=== PATIENT | female | born 1960 | race African-American/Black ===

== ENCOUNTER 2022-01-08 13:50 | Emergency (ER) | payer MEDICAID ==
[~2022-01-08] VITALS: Ht 157.5 cm; Wt 70.5 kg
[2022-01-08 14:23] VITALS: BP 148/99
[2022-01-08] MEDS ORDERED: CEPH500T PO (15:58)
== END 2022-01-08 16:12 | disposition home or self-care (01) ==
LOC: ER 13:50
DX: L84 Corns and callosities (principal); I10 Essential (primary) hypertension; E11.9 Type 2 diabetes mellitus without complications; E78.5 Hyperlipidemia, unspecified; E03.9 Hypothyroidism, unspecified; F17.210 Nicotine dependence, cigarettes, uncomplicated; Z90.710 Acquired absence of both cervix and uterus; Z79.899 Other long term (current) drug therapy
CPT/HCPCS: 73630

== ENCOUNTER 2022-03-18 08:38 | Emergency (ER) | payer MEDICAID ==
[~2022-03-18] VITALS: Ht 157.5 cm; Wt 70.5 kg
[~2022-03-18 08:38] MED LIST: CEPH500T PO
[2022-03-18] MEDS ORDERED: CEPH-510 PO (11:00)
[2022-03-18] MEDS ORDERED: HYDR50CA PO (11:00)
[2022-03-18] MEDS ORDERED: diphenhdrAMINE HCL 50 MG/1 ML VL IM ONE (11:00)
[2022-03-18] MEDS ORDERED: PER60TP TOP (11:00)
[2022-03-18 11:10] VITALS: BP 162/94
== END 2022-03-18 11:13 | disposition home or self-care (01) ==
LOC: ER 08:38
DX: B86 Scabies (principal); I10 Essential (primary) hypertension; E11.9 Type 2 diabetes mellitus without complications; E78.5 Hyperlipidemia, unspecified; E03.9 Hypothyroidism, unspecified; F17.210 Nicotine dependence, cigarettes, uncomplicated; Z90.710 Acquired absence of both cervix and uterus; Z79.899 Other long term (current) drug therapy
CPT/HCPCS: 96372; 99283; J1200

== ENCOUNTER 2022-03-29 08:49 | Emergency (ER) | payer MEDICAID ==
[~2022-03-29] VITALS: Ht 157.5 cm; Wt 100.0 kg
[~2022-03-29 08:49] MED LIST changes: +CEPH-510 PO; +HYDR50CA PO; +PER60TP TOP
[2022-03-29 11:17] VITALS: BP 113/76
== END 2022-03-29 12:54 | disposition left against medical advice (07) ==
LOC: ER 08:49
DX: B86 Scabies (principal); I10 Essential (primary) hypertension; E11.9 Type 2 diabetes mellitus without complications; E03.9 Hypothyroidism, unspecified; E78.5 Hyperlipidemia, unspecified; F17.210 Nicotine dependence, cigarettes, uncomplicated; Z90.710 Acquired absence of both cervix and uterus; Z79.899 Other long term (current) drug therapy

== ENCOUNTER 2022-09-23 02:55 | Emergency (ER) | payer MEDICAID ==
[~2022-09-23] VITALS: Ht 160 cm; Wt 67.8 kg
[2022-09-23 03:40] LABS: Basophils # (auto) 0.1 10 ^3/uL (0-0.2); Basophils % (auto) 0.7 % (0.0-2.0); Eosinophils # (auto) 0 10 ^3/uL (0-0.8); Eosinophils % (auto) 0.2 % (0.0-7.0); Hemoglobin 15.1 g/dL (12.2-16.2); Lymphocytes # (auto) 2.3 10 ^3/uL (0.4-5.4); Lymphocytes % (auto) 21.2 % (10.0-50.0); Mean Corpuscular Hemoglobin 29.5 pg (28.0-32.0); Mean Corpuscular Hgb Conc. 34.3 g/dL (32.0-36.0); Mean Corpuscular Volume 85.8 fL (80.0-100.0); Monocytes # (auto) 1.4 10 ^3/uL (0-1.3); Monocytes % (auto) 12.8 % (0.0-12.0); Neutrophils % (auto) 65.1 % (37.0-80.0); Nucleated Red Blood Cells % 0.2 %; Red Blood Cells 5.13 10^6/uL (4.0-5.20); Red Cell Distribution Width 14.9 % (11.8-14.3); White Blood Cell 10.7 10^3/uL (4.4-10.8)
[2022-09-23 03:45] LABS: Albumin 3.7 g/dL (3.4-5.0); BUN/Creatinine Ratio 13.4; Calcium 9.6 mg/dL (8.5-10.1); Magnesium 2.4 mg/dL (1.6-2.6); Potassium 3.7 mmol/L (3.5-5.1)
[2022-09-23 03:47] LABS: Bilirubin, Total 0.5 mg/dL (0.2-1.0); Total Protein 8.6 g/dL (6.4-8.2)
[2022-09-23] MEDS ORDERED: LISINOPRIL 10 MG TAB PO ONE (06:15)
[2022-09-23] MEDS ORDERED: METOPROLOL SUCCINATE XL 50 MG TAB PO ONE (06:15)
[2022-09-23 09:52] VITALS: BP 155/88
== END 2022-09-23 09:56 | disposition home or self-care (01) ==
LOC: ER 02:55
DX: R07.89 Other chest pain (principal); I10 Essential (primary) hypertension; F17.210 Nicotine dependence, cigarettes, uncomplicated; E11.9 Type 2 diabetes mellitus without complications; E78.5 Hyperlipidemia, unspecified; Z90.710 Acquired absence of both cervix and uterus
CPT/HCPCS: 36415; 71045; 80053; 83735; 83880; 84484; 85025; 93005

== ENCOUNTER 2023-01-15 18:31 | Emergency (ER) | payer MEDICAID, OTHER ==
[~2023-01-15] VITALS: Ht 157.5 cm; Wt 60.0 kg
[2023-01-15 18:40] VITALS: BP 156/104
[2023-01-15] MEDS ORDERED: IBUP-1455 PO (21:03)
[2023-01-15] MEDS ORDERED: KETOROLAC TROMETH 30 MG/ML 1ML VIAL IM ONE (21:15)
== END 2023-01-15 21:15 | disposition home or self-care (01) ==
LOC: ER 18:31
DX: J45.909 Unspecified asthma, uncomplicated (principal); I10 Essential (primary) hypertension; F17.210 Nicotine dependence, cigarettes, uncomplicated; Z90.710 Acquired absence of both cervix and uterus
CPT/HCPCS: 96372; 99283; J1885

== ENCOUNTER 2023-10-21 19:52 | Inpatient (IN) | payer MEDICAID ==
[~2023-10-21] VITALS: Ht 160 cm; Wt 76.3 kg
[~2023-10-21 19:52] MED LIST changes: +IBUP-1455 PO
[2023-10-21 20:20] VITALS: PULSE 129; RESP 14; O2SAT 94
[2023-10-21] MEDS: ONDANSETRON HCL 4 MG/2 ML VIAL IV ONE (22:10)
[2023-10-21] MEDS: HYDROmorphone HCL 2 MG/ML VL/or syr IV ONE (22:10)
[2023-10-22 02:30] LABS: Basophils # (auto) 0.1 10 ^3/uL (0-0.2); Basophils % (auto) 1.1 % (0.0-2.0); Eosinophils # (auto) 0.2 10 ^3/uL (0-0.8); Eosinophils % (auto) 1.6 % (0.0-7.0); Hematocrit 38.6 % (36.0-46.0); Hemoglobin 12.5 g/dL (12.2-16.2); Lymphocytes % (auto) 36.9 % (10.0-50.0); Mean Corpuscular Hemoglobin 27.7 pg (28.0-32.0); Mean Corpuscular Hgb Conc. 32.4 g/dL (32.0-36.0); Mean Corpuscular Volume 85.4 fL (80.0-100.0); Monocytes # (auto) 1.2 10 ^3/uL (0-1.3); Monocytes % (auto) 11.2 % (0.0-12.0); Neutrophils # (auto) 5.3 10 ^3/uL (1.6-8.6); Neutrophils % (auto) 49.2 % (37.0-80.0); Red Blood Cells 4.52 10^6/uL (4.0-5.20); Red Cell Distribution Width 14.3 % (11.8-14.3); White Blood Cell 10.7 10^3/uL (4.4-10.8)
[2023-10-22 02:36] LABS: Alanine Aminotransferase 10 U/L (7-40); Albumin 3.8 g/dL (3.2-4.8); Alkaline Phosphatase 76 U/L (46-116); Anion Gap 2 (5-15); Aspartate Aminotransferase 15 U/L (13-40); BUN/Creatinine Ratio 13.9 (10.0-20.0); Bilirubin, Total 0.2 mg/dL (0.2-1.0); Blood Urea Nitrogen 10 mg/dL (9-23); Calcium 9.4 mg/dL (8.7-10.4); Carbon Dioxide 28 mmol/L (20-30); Chloride 105 mmol/L (98-107); Glucose 126 mg/dL (74-106); Potassium 4.6 mmol/L (3.5-5.1); Sodium 135 mmol/L (136-145); Total Protein 6.4 g/dL (5.7-8.2)
[2023-10-22] MEDS ORDERED: ONDANSETRON HCL 4 MG/2 ML VIAL IV PRN (03:30)
[2023-10-22] MEDS ORDERED: DEXTROSE (50%) 50ML SYRG IV PRN (03:30)
[2023-10-22] MEDS ORDERED: DOCUSATE SOD 100 MG CAP PO PRN (03:30)
[2023-10-22] MEDS ORDERED: NITROGLYCERIN 0.4 MG SL TAB SL PRN (03:30)
[2023-10-22] MEDS ORDERED: MORPHINE SULFATE INJ 2 MG/ml SYRG IV PRN (03:30)
[2023-10-22 04:30] LABS: Basophils # (auto) 0.1 10 ^3/uL (0-0.2); Basophils % (auto) 1.1 % (0.0-2.0); Eosinophils # (auto) 0.2 10 ^3/uL (0-0.8); Eosinophils % (auto) 2.2 % (0.0-7.0); Hematocrit 39.2 % (36.0-46.0); Hemoglobin 12.7 g/dL (12.2-16.2); Lymphocytes % (auto) 38.3 % (10.0-50.0); Mean Corpuscular Hemoglobin 28.1 pg (28.0-32.0); Mean Corpuscular Hgb Conc. 32.4 g/dL (32.0-36.0); Mean Corpuscular Volume 86.6 fL (80.0-100.0); Monocytes # (auto) 1.3 10 ^3/uL (0-1.3); Monocytes % (auto) 12.2 % (0.0-12.0); Neutrophils # (auto) 4.8 10 ^3/uL (1.6-8.6); Neutrophils % (auto) 46.2 % (37.0-80.0); Nucleated Red Blood Cells % 0.1 %; Red Blood Cells 4.52 10^6/uL (4.0-5.20); Red Cell Distribution Width 14.6 % (11.8-14.3); White Blood Cell 10.4 10^3/uL (4.4-10.8)
[2023-10-22 04:40] LABS: Chloride 105 mmol/L (98-107); Potassium 4.2 mmol/L (3.5-5.1); Sodium 135 mmol/L (136-145)
[2023-10-22 04:41] LABS: Anion Gap 3 (5-15); Calcium 9.2 mg/dL (8.7-10.4); Carbon Dioxide 27 mmol/L (20-30)
[2023-10-22 04:46] LABS: BUN/Creatinine Ratio 10.1 (10.0-20.0); Blood Urea Nitrogen 7 mg/dL (9-23); Glucose 122 mg/dL (74-106)
[2023-10-22] MEDS: MORPHINE SULFATE INJ 2 MG/ml SYRG IV PRN (06:58)
[2023-10-22] MEDS: InsuLIN REG 1unit/0.01ml Soln (100units/ml) SC SCH (07:00)
[2023-10-22] MEDS: ACCU-CHEK COMFORT CURVE STRIP VI SCH (07:13)
[2023-10-22 08:00] VITALS: BP 99/69; PULSE 124; RESP 18; TEMP 97.4; O2SAT 96
[2023-10-22 08:15] VITALS: PULSE 124; RESP 18; O2SAT 96
[2023-10-22] MEDS: DOCUSATE SOD 100 MG CAP PO SCH (08:24)
[2023-10-22] MEDS: ENOXAPARIN SOD 40 MG/0.4 ML SYRINGE SC SCH (09:43)
[2023-10-22] MEDS: HYDROcodone-ACET 5/325MG TAB PO PRN (09:47)
[2023-10-22 12:00] VITALS: BP 152/81; PULSE 92; RESP 18; TEMP 97.8; O2SAT 93
[2023-10-22 16:00] VITALS: BP 154/79; PULSE 109; RESP 18; TEMP 97.6; O2SAT 93
[2023-10-22] MEDS: methylPREDNISolone SOD SUCC 125 MG/2 ML VL IV SCH (16:48)
[2023-10-22] MEDS: PANTOPRAZOLE 40 MG/10 ML VIAL INJ IV SCH (16:48)
[2023-10-22 20:00] VITALS: RESP 18; O2SAT 96
[2023-10-22 21:00] VITALS: BP 147/104; PULSE 118; RESP 22; TEMP 98.4; O2SAT 95
[2023-10-23] VITALS (7 sets, daily range): BP systolic 112–150; BP diastolic 69–88; PULSE 89–133; RESP 14–20; TEMP 97.3–98.2; O2SAT 91–98
[2023-10-23 06:59] LABS: Basophils # (auto) 0 10 ^3/uL (0-0.2); Basophils % (auto) 0.3 % (0.0-2.0); Eosinophils # (auto) 0 10 ^3/uL (0-0.8); Hematocrit 40.4 % (36.0-46.0); Hemoglobin 13.6 g/dL (12.2-16.2); Lymphocytes # (auto) 1.5 10 ^3/uL (0.4-5.4); Lymphocytes % (auto) 20.8 % (10.0-50.0); Mean Corpuscular Hemoglobin 28.6 pg (28.0-32.0); Mean Corpuscular Hgb Conc. 33.6 g/dL (32.0-36.0); Mean Corpuscular Volume 85.1 fL (80.0-100.0); Monocytes # (auto) 0.4 10 ^3/uL (0-1.3); Monocytes % (auto) 5.7 % (0.0-12.0); Neutrophils # (auto) 5.3 10 ^3/uL (1.6-8.6); Neutrophils % (auto) 73.2 % (37.0-80.0); Red Blood Cells 4.75 10^6/uL (4.0-5.20); White Blood Cell 7.2 10^3/uL (4.4-10.8)
[2023-10-23 07:11] LABS: Anion Gap 9 (5-15); Calcium 9.7 mg/dL (8.5-10.1); Carbon Dioxide 25 mmol/L (20-30); Chloride 104 mmol/L (98-107); Potassium 3.5 mmol/L (3.5-5.1); Sodium 138 mmol/L (136-145)
[2023-10-23 07:16] LABS: Glucose 127 mg/dL (74-106)
[2023-10-23 07:17] LABS: BUN/Creatinine Ratio 12.5 (10.0-20.0); Blood Urea Nitrogen 8 mg/dL (9-23)
[2023-10-23] MEDS: ACETAMINOPHEN 325 MG TAB PO PRN (23:14)
[2023-10-24] VITALS (8 sets, daily range): BP systolic 110–156; BP diastolic 63–87; PULSE 81–113; RESP 14–18; TEMP 97.8–98.4; O2SAT 92–99
[2023-10-24 05:40] LABS: Calcium 9.8 mg/dL (8.7-10.4); Chloride 108 mmol/L (98-107); Potassium 3.7 mmol/L (3.5-5.1); Sodium 138 mmol/L (136-145)
[2023-10-24 05:41] LABS: Anion Gap 2 (5-15); Carbon Dioxide 28 mmol/L (20-30)
[2023-10-24 05:46] LABS: BUN/Creatinine Ratio 18.4 (10.0-20.0); Blood Urea Nitrogen 14 mg/dL (9-23); Glucose 133 mg/dL (74-106)
[2023-10-24 05:48] LABS: Basophils # (auto) 0 10 ^3/uL (0-0.2); Basophils % (auto) 0.1 % (0.0-2.0); Eosinophils # (auto) 0 10 ^3/uL (0-0.8); Hematocrit 40.9 % (36.0-46.0); Hemoglobin 13.6 g/dL (12.2-16.2); Lymphocytes # (auto) 1.8 10 ^3/uL (0.4-5.4); Lymphocytes % (auto) 17.2 % (10.0-50.0); Mean Corpuscular Hemoglobin 28.3 pg (28.0-32.0); Mean Corpuscular Hgb Conc. 33.4 g/dL (32.0-36.0); Mean Corpuscular Volume 84.8 fL (80.0-100.0); Monocytes # (auto) 0.8 10 ^3/uL (0-1.3); Monocytes % (auto) 7.8 % (0.0-12.0); Neutrophils # (auto) 7.9 10 ^3/uL (1.6-8.6); Neutrophils % (auto) 74.9 % (37.0-80.0); Nucleated Red Blood Cells % 0.1 %; Red Blood Cells 4.82 10^6/uL (4.0-5.20); Red Cell Distribution Width 14.6 % (11.8-14.3); White Blood Cell 10.6 10^3/uL (4.4-10.8)
[2023-10-25] VITALS (7 sets, daily range): BP systolic 124–149; BP diastolic 70–101; PULSE 81–109; RESP 16–18; TEMP 98.1–98.4; O2SAT 92–97
[2023-10-25 05:46] LABS: Basophils # (auto) 0.1 10 ^3/uL (0-0.2); Basophils % (auto) 1.3 % (0.0-2.0); Chloride 109 mmol/L (98-107); Eosinophils # (auto) 0 10 ^3/uL (0-0.8); Hematocrit 41.9 % (36.0-46.0); Hemoglobin 13.7 g/dL (12.2-16.2); Lymphocytes % (auto) 17.3 % (10.0-50.0); Mean Corpuscular Hemoglobin 27.8 pg (28.0-32.0); Mean Corpuscular Hgb Conc. 32.8 g/dL (32.0-36.0); Mean Corpuscular Volume 84.9 fL (80.0-100.0); Monocytes # (auto) 0.9 10 ^3/uL (0-1.3); Neutrophils # (auto) 8.3 10 ^3/uL (1.6-8.6); Neutrophils % (auto) 73.4 % (37.0-80.0); Nucleated Red Blood Cells % 0.1 %; Potassium 3.7 mmol/L (3.5-5.1); Red Blood Cells 4.94 10^6/uL (4.0-5.20); Red Cell Distribution Width 14.4 % (11.8-14.3); Sodium 140 mmol/L (136-145); White Blood Cell 11.3 10^3/uL (4.4-10.8)
[2023-10-25 05:47] LABS: Anion Gap 2 (5-15); Calcium 9.4 mg/dL (8.7-10.4); Carbon Dioxide 29 mmol/L (20-30)
[2023-10-25 05:52] LABS: BUN/Creatinine Ratio 22.7 (10.0-20.0); Blood Urea Nitrogen 17 mg/dL (9-23); Glucose 133 mg/dL (74-106)
[2023-10-25] MEDS ORDERED: AMLO1TAB22 PO (17:12)
[2023-10-25] MEDS ORDERED: METO-159 PO (17:12)
[2023-10-25] MEDS ORDERED: LISI20TA56 PO (17:12)
[2023-10-26] VITALS (7 sets, daily range): BP systolic 136–150; BP diastolic 66–108; PULSE 64–107; RESP 14–18; TEMP 97.2–98.6; O2SAT 96–100
[2023-10-26 06:21] LABS: Anion Gap 5 (5-15); Carbon Dioxide 24 mmol/L (20-30); Chloride 109 mmol/L (98-107); Potassium 3.9 mmol/L (3.5-5.1); Sodium 138 mmol/L (136-145)
[2023-10-26 06:26] LABS: BUN/Creatinine Ratio 18.7 (10.0-20.0); Blood Urea Nitrogen 14 mg/dL (9-23); Glucose 123 mg/dL (74-106)
[2023-10-26 06:33] LABS: Basophils # (auto) 0.1 10 ^3/uL (0-0.2); Basophils % (auto) 0.6 % (0.0-2.0); Eosinophils # (auto) 0 10 ^3/uL (0-0.8); Hematocrit 41.6 % (36.0-46.0); Hemoglobin 13.7 g/dL (12.2-16.2); Lymphocytes # (auto) 2.9 10 ^3/uL (0.4-5.4); Lymphocytes % (auto) 21.3 % (10.0-50.0); Mean Corpuscular Hemoglobin 28.4 pg (28.0-32.0); Mean Corpuscular Hgb Conc. 32.9 g/dL (32.0-36.0); Mean Corpuscular Volume 86.3 fL (80.0-100.0); Monocytes % (auto) 7.1 % (0.0-12.0); Neutrophils # (auto) 9.6 10 ^3/uL (1.6-8.6); Nucleated Red Blood Cells % 0.2 %; Red Blood Cells 4.82 10^6/uL (4.0-5.20); Red Cell Distribution Width 14.4 % (11.8-14.3); White Blood Cell 13.5 10^3/uL (4.4-10.8)
[2023-10-26] MEDS: LISINOPRIL 20 MG TAB PO SCH (09:18)
[2023-10-26] MEDS: METOPROLOL SUCCINATE XL 50 MG TAB PO SCH (09:18)
[2023-10-26] MEDS: amLODIPine BESYLATE 5 MG TAB PO SCH (09:18)
[2023-10-26] MEDS: ceFAZolin 2 GM/D5W50ml 50 ML IV ONE (13:06)
[2023-10-26] MEDS ORDERED: MORPHINE SULF PF 5 MG/10 ML VIAL ONE (14:31)
[2023-10-26] MEDS ORDERED: LIDOCAINE 1% INJ PF 5ML AMP ONE (14:31)
[2023-10-26] MEDS ORDERED: MIDAZOLAM HCL 2MG/2ML 2ml VIAL (1mg/ml) ONE (14:31)
[2023-10-26] MEDS ORDERED: fentaNYL CITRATE 5 ML ONE (14:31)
[2023-10-26] MEDS ORDERED: ONDANSETRON HCL 4 MG/2 ML VIAL ONE (14:31)
[2023-10-26] MEDS ORDERED: [UNRECOGNIZED DRUG - OTHER] ONE (14:31)
[2023-10-26] MEDS ORDERED: ROCURONIUM 10MG/ML 10ML VIAL IV ONE (14:31)
[2023-10-26] MEDS ORDERED: PROPOFOL 10 MG/ML 20 ML IV ONE (14:31)
[2023-10-26] MEDS ORDERED: DexAMETHasone SOD PHOS 10MG/1ML VIAL INJ ONE (14:31)
[2023-10-26] MEDS ORDERED: NEOSTIGMINE 1 MG/ML INJ (10mg/10ML VIAL) ONE (14:31)
[2023-10-26] MEDS ORDERED: fentaNYL CITRATE 100 MCG/2 ML VL ONE ×2 (14:31→17:34)
[2023-10-26] MEDS ORDERED: GLYCOPYRROLATE 0.2 MG/ML 1ML VIAL ONE (14:31)
[2023-10-26] MEDS ORDERED: KETAMINE 50mg/ML 1ml syringe ONE (14:34)
[2023-10-26] MEDS: TRANEXAMIC ACID 20 ML ONE (14:37)
[2023-10-26] MEDS: LIDOCAINE W/ EPINEPHRINE 1% 20ML VIAL ONE (14:37)
[2023-10-26] MEDS: levoFLOXacin 500MG 100 ML IV ONE (16:32)
[2023-10-26] MEDS ORDERED: ONDANSETRON HCL 4 MG/2 ML VIAL IV PRN (18:45)
[2023-10-26] MEDS ORDERED: MORPHINE SULFATE INJ 2 MG/ml SYRG IV PRN (19:30)
[2023-10-26] MEDS ORDERED: HYDROmorphone HCL 2 MG/ML VL/or syr IV PRN ×2 (19:30)
[2023-10-26] MEDS: KETOROLAC TROMETH 30 MG/ML 1ML VIAL IV ONE (19:30)
[2023-10-26] MEDS: METOCLOPRAMIDE HCL 5MG/ml INJ 2ml VIAL IV ONE (19:30)
[2023-10-26] MEDS ORDERED: THROAT LOZENGES(CEPASTAT) MT PRN (19:30)
[2023-10-26] MEDS: DOCUSATE SOD 100 MG CAP PO SCH (21:47)
[2023-10-26] MEDS: CYCLOBENZAPRINE HCL 10 MG TAB PO SCH (21:47)
[2023-10-26] MEDS: ceFAZolin 1GM/50ML 50 ML IV SCH (21:48)
[2023-10-26] MEDS: D5W/SOD CHLO 0.9% 1,000 ML IV SCH (21:50)
[2023-10-26] MEDS: MORPHINE SULFATE INJ 2 MG/ml SYRG IV PRN (23:02)
[2023-10-27] VITALS (9 sets, daily range): BP systolic 115–146; BP diastolic 56–76; PULSE 67–93; RESP 14–19; TEMP 97.5–99.4; O2SAT 92–97
[2023-10-27] MEDS: HYDROcodone-ACET 10/325MG TAB PO PRN (00:39)
[2023-10-27] MEDS: HYDROmorphone HCL 2 MG/ML VL/or syr IV ONE (04:48)
[2023-10-27] MEDS: ACETAMINOPHEN 325 MG TAB PO PRN (10:33)
[2023-10-27] MEDS: MORPHINE SULFATE INJ 2 MG/ml SYRG IV PRN (12:44)
[2023-10-27] MEDS: HYDROcodone-ACET 5/325MG TAB PO PRN (14:23)
[2023-10-28 01:00] VITALS: BP 142/69; PULSE 89; RESP 17; TEMP 100.1; O2SAT 95
[2023-10-28 05:00] VITALS: BP 140/64; PULSE 87; RESP 18; TEMP 98.9; O2SAT 94
[2023-10-28 08:00] VITALS: PULSE 75; PULSE 80; RESP 16
[2023-10-28 10:36] VITALS: BP 148/87; PULSE 89; RESP 19; TEMP 98.1; O2SAT 96
[2023-10-28 12:59] VITALS: BP 119/70; PULSE 95; RESP 18; TEMP 98.9; O2SAT 94
[2023-10-28 17:04] VITALS: BP_SYST 117; BP_SYST 148; BP_DIAS 80; BP_DIAS 87; PULSE 80; PULSE 97; RESP 18; TEMP 37.2; O2SAT 95
== END 2023-10-28 17:59 | disposition home health service (06) | DRG 304 ==
LOC: EDBD 19:52 → ER 19:52 → OVERFLOW 10-22 03:36 → WEST WING 10-22 03:36 → TELE-WESTW 10-26 19:41
PROVIDERS: ADMIT Nurse Practitioner Family; ATTEND Nurse Practitioner Family
PROC: 0SG0071 Fusion of Lumbar Vertebral Joint with Autologous Tissue Substitute, Posterior Approach, Posterior Column, Open Approach (ICD-10-PCS; 2023-10-26)
PROC: 01NB0ZZ Release Lumbar Nerve, Open Approach (ICD-10-PCS; 2023-10-26)
PROC: 4A11X4G Monitoring of Peripheral Nervous Electrical Activity, Intraoperative, External Approach (ICD-10-PCS; 2023-10-26)
PROC: 00NY0ZZ Release Lumbar Spinal Cord, Open Approach (ICD-10-PCS; 2023-10-26)
PROC: 0SG3071 Fusion of Lumbosacral Joint with Autologous Tissue Substitute, Posterior Approach, Posterior Column, Open Approach (ICD-10-PCS; principal; 2023-10-26 15:33)
DX: M48.061 Spinal stenosis, lumbar region without neurogenic claudication (principal); M48.56XA Collapsed vertebra, not elsewhere classified, lumbar region, initial encounter for fracture; E03.9 Hypothyroidism, unspecified; M41.9 Scoliosis, unspecified; I10 Essential (primary) hypertension; E11.9 Type 2 diabetes mellitus without complications; W18.30XA Fall on same level, unspecified, initial encounter; M43.17 Spondylolisthesis, lumbosacral region; X58.XXXA Exposure to other specified factors, initial encounter; Y93.89 Activity, other specified; Y92.89 Other specified places as the place of occurrence of the external cause; Y99.8 Other external cause status; M54.16 Radiculopathy, lumbar region; W19.XXXA Unspecified fall, initial encounter
CPT/HCPCS: 36415; 71250; 72100; 72131; 72148; 74176; 76000; 80048; 80053; 82962; 85025; 86850; 86900; 86901; 93005; 96374; 96375; 97110; 97116; 97163; 97530; C9113; G0378; J1100; J1815; J1956; J2250; J2405; J2704; J7042

== ENCOUNTER 2024-10-06 18:57 | Emergency (ER) | payer MEDICAID ==
[~2024-10-06] VITALS: Ht 157.5 cm; Wt 68.7 kg
[~2024-10-06 18:57] MED LIST changes: +AMLO1TAB22 PO; -CEPH-510 PO; -CEPH500T PO; -IBUP-1455 PO; +LISI20TA56 PO; +METO-159 PO
[2024-10-06 19:25] VITALS: BP 114/82; PULSE 101; RESP 16; TEMP 97.8; O2SAT 95
--- NOTE | 2024-10-06 19:44 | ED.PDOC ---
GI ASSESSMENT HPI Comments 63-year-old female who came to ER for diarrhea. Patient states she has been having episodes of diarrhea even before she had her back surgery last October 2023. After the surgery she has been having fecal incontinence, she is unable to prevent herself from having diarrhea that worsened the past 2 days. Denies any abdominal pain, nausea or vomiting. Chief Complaint: Diarrhea Time Seen by MD: 19:43 Primary Care Provider: TREVA Harrison Notes: Nurses Notes Allergies: Coded Allergies: NO KNOWN ALLERGIES (Unverified , 01/08/22) Home Meds Active Scripts Permethrin (Elimite) 5 % Cre, 1 APPLIC TOP ONCE, #60 GRAMS 1 Refill Prov:MIO ARITA 03/18/22 Hydroxyzine Pamoate (Vistaril) 50 Mg Cap, 50 MG PO BID, #30 CAP Prov:MIO ARITA 03/18/22 Reported Medications Lisinopril (Lisinopril) 20 Mg Tab, 1 TAB PO DAILY, #30 TAB 5 Refills 10/25/23 Metoprolol Tartrate (Metoprolol Tartrate) 100 Mg Tab, 100 MG PO DAILY for 30 Days, MG 10/25/23 Amlodipine Besylate (Amlodipine Besylate) 5 Mg Tab, 10 MG PO DAILY for 30 Days, MG 10/25/23 Information Source: Patient Mode of Arrival: Ambulatory Timing: Months Duration: Intermittent Prehospital treatment: None Quality: None Vomitus: None Stool: Loose, Watery Severity: Moderate Recent: Recent Surgery Associated sign and symptoms: Diarrhea Past Medical History PAST MEDICAL HISTORY: Asthma, HTN, Thyroid Surgical History: Hysterectomy [employer]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 [employer]ARD WORKER History Family History Family History: Reviewed,noncontributory to illness Social History Smoker: Cigarettes, Less Than 1 Pack/Day Alcohol: Denies ETOH Use Drugs: Denies Drug Use Lives In: Home Constitutional: denies: chills, diaphoresis, fatigue, fever, malaise, sweats, weakness, others EENTM: denies: blurred vision, double vision, ear bleeding, ear discharge, ear drainage, ear pain, ear ringing, eye pain, eye redness, hearing loss, mouth pain, mouth swelling, nasal discharge, nose bleeding, nose congestion, nose pain, photophobia, tearing, throat pain, throat swelling, voice changes, others Respiratory: denies: cough, hemoptysis, orthopnea, SOB at rest, shortness of breath, SOB with excertion, stridor, wheezing, others Cardiovascular: denies: chest pain, dizzy spells, diaphoresis, Dyspnea on exertion, edema, irregular heart beat, left arm pain, lightheadedness, palpitations, PND, syncope, others Gastrointestinal: reports: diarrhea; denies: abdomen distended, abdominal pain, blood streaked bowels, constipated, dysphagia, difficulty swallowing, hematemesis, melena, nausea, poor appetite, poor fluid intake, rectal bleeding, rectal pain, vomiting, others Genitourinary: denies: abnormal vagina bleeding, burning, dyspareunia, dysuria, flank pain, frequency, hematuria, incontinence, pain, , vagina discharge, urgency, others Neurological: denies: dizziness, fainting, headache, left sided numbness, left sided weakness, numbness, paresthesia, pre-existing deficit, right sided numbness, right sided weakness, seizure, speech problems, tingling, tremors, weakness, others Musculoskeletal: denies: back pain, gout, joint pain, joint swelling, muscle pain, muscle stiffness, neck pain, others Integumetry: denies: bruises, change in color, change in hair/nails, dryness, laceration, lesions, lumps, rash, wounds, others Allergic/Immunocompromised: denies: Difficulty Healing, Frequent Infections, Hives, Itching, others Hematologic/Lymphatic: denies: anemia, blood clots, easy bleeding, easy bruising, swollen glands, others Endocrine: denies: excessive hunger, excessive sweating, excessive thirst, excessive urination, flushing, intolerance to cold, intolerance to heat, unexplained weight gain, unexplained weight loss, others Psychiatric: denies: anxiety, bipolar disorder, depression, hopeless, panic disorder, schizophrenia, sleepless, suicidal, others Physical Exam General Appearance: Mild Distress, No Apparent Distress, Normal HEENT: Normal ENT Inspection, Pharynx Normal, TMs Normal Neck: Full Range of Motion, Non-Tender, Normal, Normal Inspection Respiratory: Chest Non-Tender, Lungs Clear, No Accessory Muscle Use, No Respiratory Distress, Normal Breath Sounds Cardiovascular: No Edema, No JVD, No Murmur, No Gallop, Normal Peripheral Pulses, Regular Rate/Rhythm Breast Exam: Deferred Gastrointestinal: No Organomegaly, Non Tender, No Pulsatile Mass, Normal Bowel Sounds, Soft Genitalia: Deferred Pelvic: Deferred Rectal: Deferred Extremities: No calf tenderness, Normal capillary refill, Normal inspection, Normal range of motion, Non-tender, No pedal edema Musculoskeletal : Apperance: Normal Neurologic: Alert, 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 Was a procedure done?: No GI differential Dx Differential Diagnosis: Diverticular disease, Gastritis/PUD, Gastroenteritis, Dehydration X-Ray, Labs, Meds, VS Vital Signs Date Time Temp Pulse Resp B/P (MAP) Pulse Ox O2 Delivery O2 Flow Rate FiO2 10/06/24 19:25 97.8 101 16 114/82 (93) 95 97.8 This is a 63-year-old female who complains of increasing stool incontinence after lumbar surgery. The patient had previous incontinent prior to surgery but states that his symptoms again worse. She was told to follow up with the primary care physician in neurosurgeon. She is also notified that she will has to wear depends. Time of 1ST Reevaluation: 19:41 Reevaluation 1ST: Unchanged Patient Education/Counseling: Diagnosis, Treatment Family Education/Counseling: No Family Present Departure 1 Departure Time of Disposition: 19:56 Impression: Primary Impression: Bowel incontinence Disposition: 01 HOME / SELF CARE / HOMELESS Condition: Stable Additional Instructions: Reassessed patient, vital signs stable. Denies any new symptoms. Patient is able to tolerate PO and ambulate/be mobile at their baseline without concern. Risks and benefits of all medications given or prescribed, if any, discussed. All lab work, imaging and diagnostic studies were reviewed by me. The patient was counseled extensively on my clinical impression, diagnosis, expected course of the disease, and plan, including their follow-up care. Will discharge patient. Patient instructed to follow up with Primary Care Physician within 24-48 hours. Strict return precautions given for further exacerbation of symptoms or for new symptoms. The patient was given the opportunity to ask questions and all questions were answered by myself and the nursing/tech staff. Patient is in agreement with the care plan. The patient verbally expressed understanding of the discharge instructions, including the reasons to return to the Emergency Department. Discharged With: Self Critical Care Note Critical Care Time?: No Stability Stability form required: No Heart Score Heart Score: Heart Score Response (Comments) Value History N/A 0 EKG N/A 0 Age N/A 0 Risk Factors N/A 0 Troponin N/A 0 Total 0 I personally scribed for YANE GORDON MD ([email or web address]) on 10/06/24 at 19:44. Electronically submitted by Dereje Stelee ([email or web address]). YANE GORDON MD Oct 06, 2024 19:44
== END 2024-10-06 21:16 | disposition home or self-care (01) ==
LOC: ER 18:57
DX: R15.9 Full incontinence of feces (principal); I10 Essential (primary) hypertension; J45.909 Unspecified asthma, uncomplicated; F17.210 Nicotine dependence, cigarettes, uncomplicated; Z90.710 Acquired absence of both cervix and uterus; Z79.899 Other long term (current) drug therapy